=== PATIENT | male | born 1990 | race Caucasian/White ===

== ENCOUNTER 2016-06-18 13:18 | Emergency (ER) | payer OTHER ==
[2016-06-18] MEDS ORDERED: CEPHALEXIN 250 MG CAP As Ordered ONE (14:21)
--- NOTE | 2016-06-18 14:47 | EDDOCDS ---
Physician Documentation [facility] Name: Tate Tirado Age: 25 yrs Sex: Male : 1990 Arrival Date: 06/18/2016 Time: 13:18 Bed TR7 Private MD: Other - Complete Info On Cds Disposition: 06/18/16 14:24 Discharged to Home/Self Care. Impression: Laceration without foreign body of left little finger without damage to nail. - Condition is Stable. - Discharge Instructions: Fingertip Injuries and Amputations. - Prescriptions for Keflex 500 mg Oral Capsule - take 1 capsule by ORAL route every 8 hours for 10 days; 30 capsule. - Medication Reconciliation, Local Pharmacy Hours form. - Follow up: Cynthia Gibson [facility]; When: Tomorrow; Reason: Recheck today's complaints, Continuance of care. Follow up: Emergency Department; When: As needed; Reason: Worsening of conditions. - Problem is new. - Symptoms are unchanged. Historical: - Allergies: no known allergies; - Home Meds: 1. none - PMHx: none; - PSHx: Tonsillectomy; wisdom teeth; - Social history: Smoking status: Patient uses tobacco products, current some day smoker. No barriers to communication noted, The patient speaks fluent Icelandic. - : The pt / caregiver states he / she is not on anticoagulants. Home medication list is obtained from the patient. - Exposure Risk Screening:: None identified. Vital Signs: 06/18 13:21 BP 164 / 66; Pulse 65; Resp 18 S; Temp 95.6(T); Pulse Ox 98% on R/A; Weight 86.18 kg / gr2 189.99 lbs (R); Height 5 ft. 10 in. (177.80 cm) (R); Pain 2/10; 13:21 Body Mass Index 27.26 (86.18 kg, 177.80 cm) gr2 MDM: 14:16 Wound Care ordered. dk1 14:16 Cephalexin 500 mg PO once ordered. dk1 14:42 [facility] Payment Agreement was scanned into [employer] and attached to record. jp5 14:42 Financial registration complete. jp5 Administered Medications: 14:20 Drug: Cephalexin 500 mg [cephalexin 250 mg capsule (2 caps)] Route: PO; kcs Signatures: SleemanAnne Marie RN RN kcs Scott, Debra, RN RN dls Tate Severino, PA-C PA-C valencia1 Divya Fay jp5 The chart was reviewed and I authenticate all verbal orders and agree with the evaluation and treatment provided.Attachments: 14:42 [facility] Payment Agreement jp5 MTDD
--- NOTE | 2016-06-18 14:47 | EDDOCDS ---
Nurse's Notes [facility] Name: Tate Tirado Age: 25 yrs Sex: Male : 1990 Arrival Date: 06/18/2016 Time: 13:18 Bed TR7 Private MD: Other - Complete Info On Cds Diagnosis: Laceration without foreign body of left little finger without damage to nail Presentation: 06/18 13:33 Presenting complaint: Patient states: Pt states was closing a pocket knife and cut tip dls of left 3rd finger Jonathan night. Adult Sepsis Screening: The patient does not have new or worsening altered mentation. Patient's respiratory rate is less than 22. Systolic blood pressure is greater than 100. Patient has a qSOFA score of 0- Negative Sepsis Screen. Suicide/Homicide risk assessment- the patient denies having any suicidal and/or homicidal ideations and does not present with any other emotional, behavioral or mental health complaints. Status: The patient is an active duty medical services coordinator. Transition of care: patient was not received from another setting of care. 13:33 Acuity: NADYA Level 5 dls 13:33 Method Of Arrival: Walkin/Carried/Asstd dls Triage Assessment: 13:35 General: Appears in no apparent distress, well developed, well nourished, well groomed, dls Behavior is cooperative. Pain: Denies pain. HIV screening NA for this visit Offered previously. Historical: - Allergies: no known allergies; - Home Meds: 1. none - PMHx: none; - PSHx: Tonsillectomy; wisdom teeth; - Social history: Smoking status: Patient uses tobacco products, current some day smoker. No barriers to communication noted, The patient speaks fluent Singaporean. - : The pt / caregiver states he / she is not on anticoagulants. Home medication list is obtained from the patient. - Exposure Risk Screening:: None identified. Vital Signs: 13:21 BP 164 / 66; Pulse 65; Resp 18 S; Temp 95.6(T); Pulse Ox 98% on R/A; Weight 86.18 kg gr2 (R); Height 5 ft. 10 in. (177.80 cm) (R); Pain 2/10; 13:21 Body Mass Index 27.26 (86.18 kg, 177.80 cm) gr2 Vitals: 13:21 Log In Time: June 18, 2016 at 13:21. gr2 ED Course: 13:20 Patient visited by Monica Oviedo. gr2 13:20 Other - Complete Info On Cds is Private Physician. gr2 13:20 Patient moved to Waiting gr2 13:22 Patient visited by Monica Oviedo. gr2 13:22 Patient moved to Pre RCE gr2 13:34 Triage Initiated dls 13:51 Patient moved to Triage 2 dem1 14:02 Tate Severino PA-C is PHCP. dk1 14:02 Agnes Rivera MD is Attending Physician. dk1 14:12 Patient visited by Tate Severino PA-C. dk1 14:23 Cynthia Gibson [facility] is Referral Physician. dk1 14:42 [facility] Payment Agreement was scanned into [employer] and attached to record. jp5 14:43 Patient moved to TR7 ct3 14:45 Wound care to healing wound to tip of left middle finger - cleansed with Hibiclens, kcs gelfoam applied then 2x2, cohere and surginet - patient tolerated well. Administered Medications: 14:20 Drug: Cephalexin 500 mg [cephalexin 250 mg capsule (2 caps)] Route: PO; kcs Order Results: There are currently no results for this order. Outcome: 14:24 Discharge ordered by Provider. dk1 14:46 Patient left the ED. kcs Signatures: Anne Marie Huff, RN RN Celena Virk RN RN Tate Stevenson PA-C PA-C dk1 Albina Desai, SHIPPING ASSISTANT SHIPPING ASSISTANT ct3 Mathieu Cox dem1 Monica Oviedo gr2 Divya Fay jp5 MTDD
--- NOTE | 2016-06-20 15:48 | EDDOCDS ---
Physician Documentation [facility] Name: Tate Tirado Age: 25 yrs Sex: Male : 1990 Arrival Date: 06/18/2016 Time: 13:18 Bed TR7 Private MD: Other - Complete Info On Cds Disposition: 06/18/16 14:24 Discharged to Home/Self Care. Impression: Laceration without foreign body of left little finger without damage to nail. - Condition is Stable. - Discharge Instructions: Fingertip Injuries and Amputations. - Prescriptions for Keflex 500 mg Oral Capsule - take 1 capsule by ORAL route every 8 hours for 10 days; 30 capsule. - Medication Reconciliation, Local Pharmacy Hours form. - Follow up: Cynthia Gibson [facility]; When: Tomorrow; Reason: Recheck today's complaints, Continuance of care. Follow up: Emergency Department; When: As needed; Reason: Worsening of conditions. - Problem is new. - Symptoms are unchanged. Historical: - Allergies: no known allergies; - Home Meds: 1. none - PMHx: none; - PSHx: Tonsillectomy; wisdom teeth; - Social history: Smoking status: Patient uses tobacco products, current some day smoker. No barriers to communication noted, The patient speaks fluent Lithuanian. - Family history: Not pertinent. - : The pt / caregiver states he / she is not on anticoagulants. Home medication list is obtained from the patient. - Exposure Risk Screening:: None identified. Vital Signs: 06/18 13:21 BP 164 / 66; Pulse 65; Resp 18 S; Temp 95.6(T); Pulse Ox 98% on R/A; Weight 86.18 kg / gr2 189.99 lbs (R); Height 5 ft. 10 in. (177.80 cm) (R); Pain 2/10; 13:21 Body Mass Index 27.26 (86.18 kg, 177.80 cm) gr2 MDM: 14:16 Wound Care ordered. dk1 14:16 Cephalexin 500 mg PO once ordered. dk1 14:42 [facility] Payment Agreement was scanned into [employer] and attached to record. jp5 14:42 Financial registration complete. jp5 06/19 06:41 T-Sheet-- Draft Copy was scanned into [employer] and attached to record. lja Administered Medications: 06/18 14:20 Drug: Cephalexin 500 mg [cephalexin 250 mg capsule (2 caps)] Route: PO; [facility] Signatures: Anne Marei Huff RN RN kcs Scott, Debra, RN RN dls Keyes, David, PA-C PANydia birmingham1 Yin, Divya Urbina jp5 The chart was reviewed and I authenticate all verbal orders and agree with the evaluation and treatment provided.Attachments: 14:42 [facility] Payment Agreement jp5 06/19 06:41 T-Sheet-- Draft Copy carol Chart Complete MTDD
--- NOTE | 2016-06-20 15:48 | EDDOCDS ---
Physician Documentation [facility] Name: Tate Tirado Age: 25 yrs Sex: Male : 1990 Arrival Date: 06/18/2016 Time: 13:18 Bed TR7 Private MD: Other - Complete Info On Cds Disposition: 06/18/16 14:24 Discharged to Home/Self Care. Impression: Laceration without foreign body of left little finger without damage to nail. - Condition is Stable. - Discharge Instructions: Fingertip Injuries and Amputations. - Prescriptions for Keflex 500 mg Oral Capsule - take 1 capsule by ORAL route every 8 hours for 10 days; 30 capsule. - Medication Reconciliation, Local Pharmacy Hours form. - Follow up: Cynthia Gibson [facility]; When: Tomorrow; Reason: Recheck today's complaints, Continuance of care. Follow up: Emergency Department; When: As needed; Reason: Worsening of conditions. - Problem is new. - Symptoms are unchanged. Historical: - Allergies: no known allergies; - Home Meds: 1. none - PMHx: none; - PSHx: Tonsillectomy; wisdom teeth; - Social history: Smoking status: Patient uses tobacco products, current some day smoker. No barriers to communication noted, The patient speaks fluent Greenlandic. - Family history: Not pertinent. - : The pt / caregiver states he / she is not on anticoagulants. Home medication list is obtained from the patient. - Exposure Risk Screening:: None identified. Vital Signs: 06/18 13:21 BP 164 / 66; Pulse 65; Resp 18 S; Temp 95.6(T); Pulse Ox 98% on R/A; Weight 86.18 kg / gr2 189.99 lbs (R); Height 5 ft. 10 in. (177.80 cm) (R); Pain 2/10; 13:21 Body Mass Index 27.26 (86.18 kg, 177.80 cm) gr2 MDM: 14:16 Wound Care ordered. dk1 14:16 Cephalexin 500 mg PO once ordered. dk1 14:42 [facility] Payment Agreement was scanned into [employer] and attached to record. jp5 14:42 Financial registration complete. jp5 06/19 06:41 T-Sheet-- Draft Copy was scanned into [employer] and attached to record. lja Administered Medications: 06/18 14:20 Drug: Cephalexin 500 mg [cephalexin 250 mg capsule (2 caps)] Route: PO; [facility] Signatures: Anne Marie Huff RN RN kcs Scott, Debra, RN RN dls Keyes, David, PA-C PANydia birmingham1 Yin, Divya Urbina jp5 The chart was reviewed and I authenticate all verbal orders and agree with the evaluation and treatment provided.Attachments: 14:42 [facility] Payment Agreement jp5 06/19 06:41 T-Sheet-- Draft Copy carol Chart Complete MTDD
--- NOTE | 2016-06-20 15:48 | EDDOCDS ---
Nurse's Notes [facility] Name: Tate Tirado Age: 25 yrs Sex: Male : 1990 Arrival Date: 06/18/2016 Time: 13:18 Bed TR7 Private MD: Other - Complete Info On Cds Diagnosis: Laceration without foreign body of left little finger without damage to nail Presentation: 06/18 13:33 Presenting complaint: Patient states: Pt states was closing a pocket knife and cut tip dls of left 3rd finger Jonathan night. Adult Sepsis Screening: The patient does not have new or worsening altered mentation. Patient's respiratory rate is less than 22. Systolic blood pressure is greater than 100. Patient has a qSOFA score of 0- Negative Sepsis Screen. Suicide/Homicide risk assessment- the patient denies having any suicidal and/or homicidal ideations and does not present with any other emotional, behavioral or mental health complaints. Status: The patient is an active duty academic services professional. Transition of care: patient was not received from another setting of care. 13:33 Acuity: NADYA Level 5 dls 13:33 Method Of Arrival: Walkin/Carried/Asstd dls Triage Assessment: 13:35 General: Appears in no apparent distress, well developed, well nourished, well groomed, dls Behavior is cooperative. Pain: Denies pain. HIV screening NA for this visit Offered previously. Historical: - Allergies: no known allergies; - Home Meds: 1. none - PMHx: none; - PSHx: Tonsillectomy; wisdom teeth; - Social history: Smoking status: Patient uses tobacco products, current some day smoker. No barriers to communication noted, The patient speaks fluent Israeli. - Family history: Not pertinent. - : The pt / caregiver states he / she is not on anticoagulants. Home medication list is obtained from the patient. - Exposure Risk Screening:: None identified. Screenin:45 Screening information is obtained from the patient. Fall risk: No risks identified. kcs Assistance ADL's: requires no assistance with activities of daily living. Abuse/DV Screen: The patient / caregiver reports he/she is: not in a situation that causes fear, pain or injury. Nutritional screening: No deficits noted. Advance Directives: Currently, there is no health care proxy. There is no living will. home support is adequate. Assessment: 14:45 Reassessment: Patient states symptoms have improved. General: Appears comfortable, well kcs developed, well nourished, well groomed, Behavior is cooperative, pleasant. Pain: Location: left middle finger. Neurological: Level of Consciousness is awake, alert. Respiratory: Airway is patent Respiratory effort is even, unlabored, Respiratory pattern is regular, symmetrical. Derm: Skin is intact, is healthy with good turgor, Skin is dry, Skin is normal. Vital Signs: 13:21 BP 164 / 66; Pulse 65; Resp 18 S; Temp 95.6(T); Pulse Ox 98% on R/A; Weight 86.18 kg gr2 (R); Height 5 ft. 10 in. (177.80 cm) (R); Pain 2/10; 13:21 Body Mass Index 27.26 (86.18 kg, 177.80 cm) gr2 Vitals: 13:21 Log In Time: June 18, 2016 at 13:21. gr2 ED Course: 13:20 Patient visited by Monica Oviedo. gr2 13:20 Other - Complete Info On Cds is Private Physician. gr2 13:20 Patient moved to Waiting gr2 13:22 Patient visited by Monica Oviedo. gr2 13:22 Patient moved to Pre RCE gr2 13:34 Triage Initiated dls 13:51 Patient moved to Triage 2 dem1 14:02 Tate Severino PA-C is [facility]. dk1 14:02 Agnes Rivera MD is Attending Physician. dk1 14:12 Patient visited by Tate Severino PA-C. dk1 14:23 [facility] is Referral Physician. dk1 14:42 [facility] Payment Agreement was scanned into [employer] and attached to record. jp5 14:43 Patient moved to TR7 ct3 14:45 The patient / caregiver is instructed regarding the plan of care and ED course. kcs 14:45 Wound care to healing wound to tip of left middle finger - cleansed with Hibiclens, kcs gelfoam applied then 2x2, cohere and surginet - patient tolerated well. 14:45 No IV's were initiated during this patient's visit. No procedures done that require kcs assistance. 14:53 Patient name changed from Tate\S\H\S\Celestino\S\ to Tate\S\Ibarra\S\Celestino. EDDC 06/19 06:41 T-Sheet-- Draft Copy was scanned into [employer] and attached to record. alpaa Administered Medications: 06/18 14:20 Drug: Cephalexin 500 mg [cephalexin 250 mg capsule (2 caps)] Route: PO; kcs Order Results: There are currently no results for this order. Outcome: 14:24 Discharge ordered by Provider. dk1 14:45 Discharge Assessment: Patient awake, alert and oriented x 3. No cognitive and/or kcs functional deficits noted. Patient verbalized understanding of disposition instructions. Patient awake and alert. patient administered narcotics - no. The following High Risk Discharge criteria are identified: None. Discharged to home ambulatory. Condition: stable. Discharge instructions given to patient, Instructed on discharge instructions, follow up and referral plans. wound care, Demonstrated understanding of instructions, medications, Pt was receptive of discharge instructions/ teaching. Prescriptions given X. No special radiology studies were completed. Property sent home with patient. 14:46 Patient left the ED. kcs Signatures: Dispatcher [facility] Anne Marie Huff RN RN Celena Virk RN RN dls Keyes, David, PA-C PA-C dk1 Albina Desai, RESTAURANT ASSISTANT RESTAURANT ASSISTANT ct3 Mathieu Cox dem1 Monica Oviedo gr2 Bernie Esqueda Jennalee jp5 Chart Complete MTDD
== END 2016-06-18 14:46 | disposition home or self-care (01) ==
LOC: M ED 13:18
DX: S61.213A Laceration without foreign body of left middle finger without damage to nail, initial encounter (principal); W45.8XXA Other foreign body or object entering through skin, initial encounter; Y92.89 Other specified places as the place of occurrence of the external cause; Y93.89 Activity, other specified; Y99.8 Other external cause status; Z90.89 Acquired absence of other organs; Z72.0 Tobacco use